=== PATIENT | male | born 1975 | race Hispanic/Latino ===

== ENCOUNTER 2017-02-08 12:42 | Observation (INO) | payer BC ==
[2017-02-08 13:24] VITALS: BMI 46.6
--- NOTE | 2017-02-08 13:27 | ED PDOC ---
Arrival/HPI - General Time Seen by Provider: 02/08/17 12:45 Historian: Patient - History of Present Illness Narrative History of Present Illness (Text): 02/08/17 13:26 A 41 year old male, whose past medical history includes non-insulin dependent diabetes, gastritis, chronic left shoulder pain and depression, anxiety on Zoloft and Xanax, presents to the emergency department complaining of generalized weakness since this morning. Patient reports he woke up feeling weak throughout his whole body and while driving to work he experienced a flushing feeling of severe weakness and dizziness. He states his symptoms have improved since arriving to emergency room. Patient denies any fever, nausea, vomiting, diarrhea, abdominal pain, chest pain, shortness of breath or any other complaints. PMD: Dr. Enciso Time/Duration: Other (This morning) Symptom Course: Improving Quality: Other Context: Other Past Medical History - Provider Review Nursing Documentation Reviewed: Yes - Tetanus Immunization Tetanus Immunization: Unknown - Endocrine/Metabolic Hx Diabetes Mellitus Type 2: Yes - Hematological/Oncological Hx Blood Transfusions: No - Musculoskeletal/Rheumatological Hx Falls: No - Gastrointestinal Hx Diverticulitis: Yes - Psychiatric Hx Emotional Abuse: No Hx Physical Abuse: No Hx Substance Use: Yes (occ marijuna) - Past Surgical History Past Surgical History: No Previous - Anesthesia Hx Anesthesia Reactions: No (NA) Hx Malignant Hyperthermia: No - Suicidal Assessment Feels Threatened In Home Enviroment: No Family/Social History - Physician Review Nursing Documentation Reviewed: Yes Family/Social History: No Known Family HX Smoking Status: Former Smoker Hx Alcohol Use: Yes (social) Hx Substance Use: Yes (occ marijuna) Hx Substance Use Treatment: No Allergies/Home Meds Allergies/Adverse Reactions: Allergies No Known Allergies Allergy (Verified 02/08/17 13:23) Home Medications: Home Meds Medication Instructions Recorded Confirmed Sertraline [Zoloft] 50 mg PO PRN PRN 08/03/14 02/08/17 ALPRAZolam [Xanax] 0.25 mg PO HS 02/08/17 02/08/17 Naproxen [Naprosyn] 500 mg PO PRN PRN 02/08/17 02/08/17 Review of Systems - Physician Review All systems were reviewed & negative as marked: Yes - Review of Systems Constitutional: Other (Generalized weakness). absent: Fevers Respiratory: absent: SOB Cardiovascular: absent: Chest Pain Gastrointestinal: absent: Abdominal Pain, Diarrhea, Nausea, Vomiting Neurological: Dizziness Physical Exam Vital Signs Reviewed: Yes Vital Signs Pulse Resp BP Pulse Ox 02/08/17 18:53 64 16 142/70 99 02/08/17 13:06 86 18 136/72 99 Blood Pressure: Normal Pulse: Regular Respiratory Rate: Normal Appearance: Positive for: Well-Appearing, Non-Toxic, Comfortable Pain Distress: None Mental Status: Positive for: Alert and Oriented X 3 Finger Stick Blood Glucose: 316 - Systems Exam Head: Present: Atraumatic, Normocephalic Pupils: Present: PERRL Extroacular Muscles: Present: EOMI Conjunctiva: Present: Normal Mouth: Present: Moist Mucous Membranes Neck: Present: Normal Range of Motion Respiratory/Chest: Present: Clear to Auscultation, Good Air Exchange. No: Respiratory Distress, Accessory Muscle Use Cardiovascular: Present: Regular Rate and Rhythm, Normal S1, S2. No: Murmurs Abdomen: Present: Normal Bowel Sounds. No: Tenderness, Distention, Peritoneal Signs Back: Present: Normal Inspection Upper Extremity: Present: Normal ROM, NORMAL PULSES, Tenderness (Left shoulder tenderness due to chronic pain), Neurovascularly Intact. No: Cyanosis, Edema, Swelling, Erythema, Temperature Abnormalties, Deformity Lower Extremity: Present: Normal Inspection. No: Edema Neurological: Present: GCS=15, CN II-XII Intact, Speech Normal Skin: Present: Warm, Dry, Normal Color. No: Rashes Psychiatric: Present: Alert, Oriented x 3, Normal Insight, Normal Concentration Medical Decision Making ED Course and Treatment: 02/08/17 13:26 Impression: A 41 year old male with generalized weakness and dizziness Plan: -- Head CT -- Chest xray -- EKG -- Labs -- Blood and Urine culture -- Urinalysis -- Reassess and disposition Progress Notes: Report Date : 02/08/2017 14:51:39 Procedure: Chest xray Dictator : Radha Lees V. IMPRESSION: No active disease. 02/08/17 16:05 On re-evaluation, patient reports he forgot to mention he had a metallic taste in his mouth prior to arrival. 02/08/17 16:27 Plan is to admit patient to telemetry obs. Will page medicine frontload driver, Dr. Reyes. Report Date : 02/08/2017 16:12:31 PROCEDURE: CT HEAD WITHOUT CONTRAST. Dictator : Radha Lees V. IMPRESSION: Normal CT of the Head. 02/08/17 16:[address] Reyes, who is unable to accept patient admission. Hospitalist paged. 02/08/17 17:00 Case discussed with hospitalist, who states to admit patient under Dr. Landry. (covers dr enciso pt) Dr. Landry paged. Awaiting call back. 02/08/17 17:[address] Landry, who accepts patient under his service. Requests Dr. Jewel Nunez for consult. pt aware of admission. 02/08/17 20:00 - Lab Interpretations Lab Results: 02/08/17 14:00 02/08/17 14:00 Lab Results 02/08/17 14:00: WBC 8.6 D, RBC 5.32, Hgb 16.0, Hct 44.8, MCV 84.2, MCH 30.1, MCHC 35.7, RDW 13.0, Plt Count 208, MPV 12.1 H, Gran % 72.4 H, Lymph % (Auto) 19.2 L, [place] % (Auto) 7.1 H, Eos % (Auto) 0.9 L, Baso % (Auto) 0.4, Gran # 6.20 , Lymph # 1.6, [place] # 0.6, Eos # 0.1, Baso # 0.03, Sodium 136, Potassium 4.2, Chloride 100, Carbon Dioxide 29, Anion Gap 11, BUN 14, Creatinine 0.7, Est GFR ( Amer) > 60, Est GFR (Non-Af Amer) > 60, Random Glucose 241 H, Calcium 9.2, Total Bilirubin 0.5, AST 21, ALT 25, Alkaline Phosphatase 114, Troponin I < 0.01, Total Protein 7.5, Albumin 3.9, Globulin 3.6, Albumin/Globulin Ratio 1.1 - RAD Interpretation Radiology Orders: 02/08/17 14:08 CHEST PORTABLE [RAD] Stat 02/08/17 14:09 HEAD W/O CONTRAST [CT] Stat - Medication Orders Current Medication Orders: Alprazolam (Xanax) 0.25 mg PO HS LEIGHANN PRN Reason: Protocol Stop: 02/15/17 22:01 Last Admin: 02/08/17 23:55 Dose: Not Given Non-Admin Reason: Patient Refused Insulin Human Regular (Humulin R Med) 0 units SC ACHS LEIGHANN PRN Reason: Protocol Oxycodone/Acetaminophen (Percocet 5/325 Mg Tab) 1 tab PO Q6H PRN PRN Reason: Pain, moderate (4-7) Stop: 02/12/17 08:53 Discontinued Medications Bupivacaine HCl (Marcaine 0.5%) 5 ml IJ ONCE ONE Stop: 02/09/17 08:56 Methylprednisolone Acetate (Depo-Medrol) 80 mg IM ONCE ONE Stop: 02/09/17 08:56 Oxycodone/Acetaminophen (Percocet 10/325 Mg Tab) 1 tab PO STAT STA Stop: 02/08/17 23:52 Last Admin: 02/09/17 00:08 Dose: 1 TAB MAR Pain Assessment Document 02/09/17 00:08 KTR (Rec: 02/09/17 00:08 KTR [id number]) Pain Reassessment Is this a pain reassessment? No Location Left, Right or Bilateral Left Pain Location Body Site Shoulder Description Description Intermittent Pain Behavior Moaning NIHSS Scale (Mabel) Time Performed: 13:00 - How Severe is the Stoke Baseline Level of Consciousness: 0=Alert LOC to Questions: 0=Both comments correct LOC to commands: 0=Obeys both correctly Best Gaze: 0=Normal Visual: 0=No visual loss Facial: 0=Normal Motor Arm - Left: 0=No drift Motor Arm - Right: 0=No drift Motor Leg - Left: 0=No drift Motor Leg - Right: 0=No drift Limb Ataxia: 0=Absent Sensory: 0=Normal Best Language: 0=No aphasia Dysarthia: 0=Normal articulation Extinction & Inattention (Neglect): 0=Normal, no object Score: 0 Risk Level: No Stroke Risk rTPA Inclusion/Exclusion - Refusal of Treatment Patient Refused Treatment: No - Inclusion Criteria for Altepase Patient is 18 years or Older: Yes The Clinical Diagnosis of Ischemic Stroke That is Causing a Potentially Disabling Neurological Deficit: No Time of Onset is Well Established to be Less Than 270 Minute Before Treatment Would Begin: Yes Risk/Benefit Discussed With Patient/Family Member Present: Yes - Exclusion Criteria for Altepase Uncontrolled Hypertension at Time of Treatment (Systolic BP above 185 or Diastolic BP above 110 mmHg): No Active Internal Bleeding: No Known Bleeding Diathesis Including but Not Limited to: Platelets Below 100,000/ mm,PTT Above 40 sec After Heparin Use, Current Use of Oral Anitcoagulant With INR Greater Than 1.7 or PT Greater Than 15 secs: No Evidence of an Intracranial Hemorrhage: No Evidence of Major Acute Infarct With Signs Greater Than 1/3 MCA Territory: No Suspicion of Subarachnoid Hemorrhage on Pretreatment Evaluation Even if CT Head Negative For Hemorrhage: No - Warning to TPA With Conditions Following Conditions Weighed Against Anticipated Benefit: No - Scribe Statement The provider has reviewed the documentation as recorded by the Renetta Carrion Provider Scribe Attestation: All medical record entries made by the Renetta were at my direction and personally dictated by me. I have reviewed the chart and agree that the record accurately reflects my personal performance of the history, physical exam, medical decision making, and the department course for this patient. I have also personally directed, reviewed, and agree with the discharge instructions and disposition. Disposition/Present on Arrival - Present on Arrival Any Indicators Present on Arrival: No History of DVT/PE: No History of Uncontrolled Diabetes: No Urinary Catheter: No History Surgical Site Infection Following: None - Disposition Have Diagnosis and Disposition been Completed?: Yes Diagnosis: Pre-syncope, Dizziness Disposition: HOSPITALIZED Disposition Time: 16:05 Patient Plan: Admission Condition: STABLE
[2017-02-08 14:21] LABS: ADD MANUAL DIFF? NO
[2017-02-08 14:22] LABS: BASO # 0.03 K/mm3 (0.0-2.0); BASO % 0.4 % (0.0-3.0); EOS # 0.1 (0.0-0.7); EOS % 0.9 % (1.5-5.0); GRAN % 72.4 % (50.0-68.0); HEMATOCRIT 44.8 % (42.0-52.0); LYMPH # 1.6 (1.2-3.4); LYMPH % 19.2 % (22.0-35.0); MEAN CELL VOLUME 84.2 fL (80.0-105.0); MEAN CORPUSCULAR HEMOGLOBIN 30.1 pg (25.0-35.0); MEAN CORPUSCULAR HGB CONC 35.7 g/dl (31.0-37.0); MEAN PLATELET VOLUME 12.1 fl (7.0-11.0); MONO # 0.6 (0.1-0.6); MONO % 7.1 % (1.0-6.0); PLATELET COUNT 208 10^3/uL (120.0-450.0); WHITE BLOOD COUNT 8.6 10^3/ul (4.5-11.0)
[2017-02-08 14:33] LABS: ALB/GLOB RATIO 1.1 (1.1-1.8); ALKALINE PHOSPHATASE 114 U/L (38-133); ALT/SGPT 25 U/L (7-56); AST/SGOT 21 U/L (15-59); BILIRUBIN,TOTAL 0.5 mg/dL (0.2-1.3); BLOOD UREA NITROGEN 14 mg/dL (7-21); CALCIUM 9.2 mg/dL (8.4-10.5); CARBON DIOXIDE 29 mmol/L (21-33); CHLORIDE 100 mmol/L (98-107); GFR AFRICAN-AMERICAN > 60; GLUCOSE,RANDOM 241 mg/dL (70-110); POTASSIUM 4.2 mmol/L (3.6-5.0); SODIUM 136 mmol/L (132-148); TOTAL PROTEIN 7.5 g/dL (5.8-8.3)
[2017-02-08 14:44] LABS: TROPONIN I < 0.01 ng/mL
--- NOTE | 2017-02-08 14:53 | RAD ---
HISTORY: dizziness COMPARISON: 08/01/2016 FINDINGS: LUNGS: No active pulmonary disease. PLEURA: No significant pleural effusion identified, no pneumothorax apparent. CARDIOVASCULAR: Normal. OSSEOUS STRUCTURES: Prominent 1st coaster cartilaginous junctional calcifications are present and similar-appearing VISUALIZED UPPER ABDOMEN: Normal. OTHER FINDINGS: None. IMPRESSION: No active disease.
--- NOTE | 2017-02-08 16:13 | CT ---
PROCEDURE: CT HEAD WITHOUT CONTRAST. HISTORY: dizziness COMPARISON: None available. TECHNIQUE: Axial computed tomography images were obtained through the head/brain without intravenous contrast. Radiation dose: Total exam DLP = 689 mGy-cm. FINDINGS: HEMORRHAGE: No intracranial hemorrhage. BRAIN: No mass effect or edema. No atrophy or chronic microvascular ischemic changes. VENTRICLES: Unremarkable. No hydrocephalus. CALVARIUM: Unremarkable. PARANASAL SINUSES: Unremarkable as visualized. No significant inflammatory changes. MASTOID AIR CELLS: Unremarkable as visualized. No inflammatory changes. OTHER FINDINGS: None. IMPRESSION: Normal CT of the Head.
[2017-02-08] MEDS ORDERED: Oxycodone/Acetaminophen 10/325 mg Tab PO STA (23:51)
--- NOTE | 2017-02-08 23:54 | CP.PCM.PN ---
Subjective - Date & Time of Evaluation Date of Evaluation: 02/08/17 Time of Evaluation: 23:52 - Subjective Subjective: Patient was seen at bedside for left shoulder pain. States that he has this pain for past 2 months. States he takes naprosyn at home, sometimes his uncle's percocet , which helps him. Denies injury to left shoulder. Denies chest pain,sob, nausea,sweating , palpitation. Pertinent medical record was reviewed. This 41 year old white male was admitted with generalized weakness, dizziness. Has PMH of NIDDM , arthritis, diverticulitis, marijuana use, chronic left shoulder pain, former smoker, Objective - Vital Signs/Intake and Output Vital Signs (last 24 hours): Temp Pulse Resp BP Pulse Ox 64 16 142/70 99 02/08/17 18:53 02/08/17 18:53 02/08/17 18:53 02/08/17 18:53 Intake and Output: 02/08/17 02/09/17 18:59 06:59 Intake Total 300 Output Total 500 Balance -200 - Medications Medications: Current Medications Alprazolam (Xanax) 0.25 mg PO HS LEIGHANN PRN Reason: Protocol Stop: 02/15/17 22:01 Oxycodone/Acetaminophen (Percocet 10/325 Mg Tab) 1 tab PO STAT STA Stop: 02/08/17 23:52 - Constitutional Appears: Well, No Acute Distress - Head Exam Head Exam: ATRAUMATIC, NORMAL INSPECTION, NORMOCEPHALIC Additional comments: Obese. - Eye Exam Eye Exam: Normal appearance - ENT Exam ENT Exam: Normal External Ear Exam - Neck Exam Neck Exam: Normal Inspection - Respiratory Exam Respiratory Exam: NORMAL BREATHING PATTERN - Cardiovascular Exam Cardiovascular Exam: absent: JVD - GI/Abdominal Exam GI & Abdominal Exam: absent: Distended - Rectal Exam Rectal Exam: Deferred - Extremities Exam Extremities Exam: Normal Inspection Additional comments: Left shoulder movement is limited secondary to pain. No loss of sensation. No erythema, No hematoma. - Back Exam Back Exam: NORMAL INSPECTION - Neurological Exam Neurological Exam: Alert, Oriented x3 - Psychiatric Exam Psychiatric exam: Normal Affect, Normal Mood - Skin Skin Exam: Normal Color Assessment and Plan - Assessment and Plan (Free Text) Assessment: A/P:Chronic left shoulder pain. Weakness Dizziness. Arthritis. Obesity. Percocet 325/10 I PO now.
[2017-02-09 01:07] VITALS: RESP 20
[2017-02-09 05:18] LABS: URINE BILIRUBIN NEGATIVE (NEGATIVE); URINE BLOOD NEGATIVE (NEGATIVE); URINE GLUCOSE (UA) >=1000 mg/dL (NEGATIVE); URINE KETONE NEGATIVE (NEGATIVE); URINE LEUKOCYTE ESTERASE NEGATIVE Leu/uL (NEGATIVE); URINE PROTEIN NEGATIVE mg/dL (<30 mg/dL); URINE UROBILINOGEN 0.2 E.U./dL (<1 E.U./dL)
[2017-02-09 05:24] LABS: URINE APPEARANCE CLEAR (CLEAR); URINE COLOR YELLOW (YELLOW)
[2017-02-09] MEDS ORDERED: Oxycodone/Acetaminophen 5/325 mg Tab PO PRN (08:52)
[2017-02-09] MEDS ORDERED: MethylPREDNISolone Depo 40 mg/ml Inj IM ONE (08:55)
[2017-02-09] MEDS ORDERED: Bupivacaine 0.5% Inj(30mL) IJ ONE (08:55)
--- NOTE | 2017-02-09 10:58 | CON ---
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 PAST MEDICAL HISTORY: Free of seizure disorder. No previous cardiac history is noted. The patient is sedentary and denies history of diabetes mellitus nor hypertension. No previous cardi ac history is noted. The patient does complain of intermittent focal left sternal chest discomfort i ntermittently in the past. SOCIAL HISTORY: He denies smoking. FAMILY HISTORY: Active for multiple near relatives with a history of cardiac and coronary issues. REVIEW OF SYSTEMS: A 14-point review of systems was reviewed in detail. No active cardiac symptomat ology is noted. PHYSICAL EXAMINATION: GENERAL: The patient is an obese male in no acute distress. VITAL SIGNS: Blood pressure is 122/68 with no orthostatic changes. Heart rate is in the 60s. NECK: Negative JVD. LUNGS: Without rales. HEART: Reveals S1, S2. EXTREMITIES: Without edema. LABORATORIES: The glucose is 241. Troponins are negative x 2. EKG is unremarkable. IMPRESSION: 1. Status post syncope, likely due to a seizure disorder. 2. No cardiac source of syncope is noted. 3. Obesity. 4. Diabetes mellitus. 5. Strong family history for coronary artery disease. 6. No evidence for acute coronary syndrome. PLAN: Given these findings, the patient is for EEG today. In addition, will order an echocardiogram to evaluate his LV function. Once his syncope as well as s eizure disorder is ruled out, will arrange for an outpatient stress test to rule out significant kathy nary disease given the patient's cardiac risk. Joseph Almonte MD cc: [id number] TT: 02/09/2017 10:57:56 Confirmation # [id number] Dictation # [id number] christina
--- NOTE | 2017-02-09 11:00 | CON ---
DATE: 02/09/2017 The patient is a 41-year-old male with left shoulder pain. 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 A large-framed patient and u sed to lift weights when he was younger. He has tender subacromial joint posteriorly and anteriorly and extreme stiffness, mostly in the morning and when he is not moving it. He has increased pain whe n he does move it, but after moving it a little more, it feels better throughout the day. So he does not have an x-ray, so we are going to order an x-ray looking for subacromial impingement and calcifi cation and AC joint arthritis because he is tender anteriorly over the AC joint and posterior over th e posterior capsule and subacromial region laterally. He has limited range of motion. He can touch his head if he does it slowly. I encouraged him not to use a sling and to do gentle range of motion exercises. So, we will get an x-ray, start therapy, see how he responds to a cortisone shot and then if need be, we could always get an MRI of the left shoulder to look for rotator cuff problems. FINAL DIAGNOSIS: Left shoulder impingement with bursitis, to reevaluate after the x-ray is performed . Kevyn Alanis DO cc: [id number] TT: 02/09/2017 11:00:04 Confirmation # [id number] Dictation # [id number] nelly
--- NOTE | 2017-02-09 11:23 | HP ---
CHIEF COMPLAINT AND HISTORY OF PRESENT ILLNESS: This is a 41-year-old male who is coming in to the [facility] with diabetes type 2, gastritis, and left shoulder pain with complaints of dizziness. The pa cecil says that he was sitting in his truck and started having weakness in the arms. He was not able to move. He was dizzy. He had no complaints of any shortness of breath, no nausea, no vomiting, no abdominal pain or back pain, no dysuria or frequency, no nocturia. REVIEW OF SYSTEMS: All other review of symptoms are within normal limits except as mentioned. ALLERGIES: No known drug allergies. HOME MEDICATIONS: Zoloft, Xanax, Naprosyn. PAST MEDICAL HISTORY: Diabetes type 2, diverticulitis, arthritis of the knees. HOME MEDICATIONS: Victoza and metformin. FAMILY HISTORY: Noncontributory. SOCIAL HISTORY: He never smoked. He drinks socially. 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 He has used mar ijuana in the past. PHYSICAL EXAMINATION: VITAL SIGNS: Temperature is 98.4, pulse of 65. Blood pressure is 130/85, respirations 20, O2 satura tion 98%. Height is 5 feet 10 inches. Weight is 325 pounds. BMI is 46. GENERAL: The patient is lying in bed, flat, and in no apparent distress. HEAD AND NECK EXAM: Atraumatic, normocephalic. Conjunctivae are pink. Throat clear and mouth with moist mucosa. Oropharynx benign. EYES: Extraocular movements are intact. PERRLA. NECK: Supple. No JVD, thyromegaly, or adenopathy. No bruits. HEART: S1 and S2 regular rate and rhythm. No murmurs, rubs, or gallops. LUNGS: Clear to auscultation bilaterally. No wheezing rales or rhonchi appreciated. No retraction s on exam. ABDOMEN: Soft, nontender, nondistended. Bowel sounds are positive in all quadrants. No rebound. No hepatosplenomegaly. EXTREMITIES: No cyanosis, clubbing, or edema. In the left shoulder, there is decreased range of m otion because of pain. NEURO: No facial asymmetry, tongue is midline, no uvula deviation. Power is 5/5 in upper extremity and 5/5 in lower extremity. Sensation is normal in upper extremity and lower extremity. PSYCH: Awake, alert, oriented x3. No anxiety or depression symptoms. Good insight. Normal affec t. : No CVA tenderness VASCULAR: 2+ pulses in carotid and pedal pulses. SKIN: No erythema or abnormal nodules noted. SPINE: Normal curvature. LYMPHADENOPATHY: No anterior cervical or posterior cervical adenopathy. No inguinal adenopathy. LABORATORY DATA: White count of 8.6. Hemoglobin is 16. Platelet count is 208. Chemistry shows a s odium of 136. Potassium is 4.2. His urine shows that proteins are negative. Glucose is greater than 1000. Blood is negative. Nitri kallie are negative. Chest x-ray is normal. CT of the head is negative. ASSESSMENT: 1. Dizziness. 2. Diabetes type 2. 3. Obese with a body mass index of 46. 4. Left shoulder pain. The patient is currently on Xanax. I will get cardiology evaluation. I will also get neurology eval uation. I have asked Dr. Alanis to evaluate the patient's left shoulder. Will await further i nput from the corporate travel consultant. The patient's initial troponin is negative. Will order an echo. Jake Landry MD cc: [id number] TT: 02/09/2017 11:23:04 jn
[2017-02-09] MEDS: Insulin Reg-MEDIUM-Coverage SC SCH ×3 (12:45→22:20)
--- NOTE | 2017-02-09 15:22 | RAD ---
PROCEDURE: Bilateral shoulders HISTORY: pain stiffness. No antecedent history of trauma provided. COMPARISON: None TECHNIQUE: Standard protocol for this study/examination. FINDINGS: No significant osseous, articular or soft tissue abnormalities. Preserved glenohumeral relationship. Negative study for clavicular, scapular, humeral fracture. No abnormalities visualized thorax including limited assessment of ribs and pulmonary parenchyma Degenerative changes- none. IMPRESSION: No significant or acute findings to account for/ related to the clinical presentation.
--- NOTE | 2017-02-09 15:32 | CARD ---
APPROVED REPORT EXAM: Two-dimensional and M-mode echocardiogram with Doppler and color Doppler. INDICATION Dizziness and Vertigo 2D DIMENSIONS Left Atrium (2D)4.0 (1.6-4.0cm)IVSd0.8 (0.7-1.1cm) LVDd4.9 (3.9-5.9cm)PWd1.2 (0.7-1.1cm) LVDs3.6 (2.5-4.0cm)FS (%) 27.5 % LVEF (%)53.1 (>50%) M-Mode DIMENSIONS Aortic Root3.40 (2.2-3.7cm)Aortic Cusp Exc.2.10 (1.5-2.0cm) Aortic Valve AoV Peak Avnasjse030.0cm/Mateo Peak GR.6mmHg Mitral Valve MV E Ehrofqpo09.0cm/sMV A Xcengehe42.3cm/sE/A ratio1.3 TDI Lateral E' Peak V8.97cm/sMedial E' Peak V8.87cm/sE/Lateral E'8.2 E/Medial E'8.3 Pulmonary Valve PV Peak Trvemeug36.3cm/sPV Peak Grad.1mmHg Tricuspid Valve TR Peak Xascryff585lo/sRAP [id number] Peak Gr.12mmHg [id number] LEFT VENTRICLE The left ventricle is normal size. There is normal left ventricular wall thickness. The left ventricular function is normal. The left ventricular ejection fraction is within the normal range. The left ventricular diastolic function is normal. RIGHT VENTRICLE The right ventricle is normal size. There is normal right ventricular wall thickness. The right ventricular systolic function is normal. ATRIA The left atrium size is normal. The right atrium size is normal. AORTIC VALVE The aortic valve is normal in structure. No aortic regurgitation is present. MITRAL VALVE The mitral valve is normal in structure. There is no mitral valve regurgitation noted. TRICUSPID VALVE There is no pulmonary hypertension. GREAT VESSELS The aortic root is normal in size. The IVC is normal in size and collapses >50% with inspiration. PERICARDIAL EFFUSION There is no pericardial effusion. <Conclusion> The left ventricle is normal size. There is normal left ventricular wall thickness. The left ventricular function is normal. The left ventricular ejection fraction is within the normal range. The left ventricular diastolic function is normal.
--- NOTE | 2017-02-09 15:46 | CARD ---
APPROVED REPORT EKG Measurement Heart [id number] <Conclusion> Normal sinus rhythm Normal ECG
--- NOTE | 2017-02-09 17:25 | EEG ---
DATE: 02/09/2017 CONDITION OF RECORDING: Awake, drowsy and hyperventilation photic stimulation was not done. History of seizure. PAST MEDICAL HISTORY: Diabetes, gastritis, anxiety. DESCRIPTION: Background activity of this tracing was composed of 8-9 cycles per second alpha-like ac tivity, small amount of beta activity of 16-20 cycles per second was noted in the tracing. Drowsines s was composed of mixed beta and theta activity. Photic stimulation and hyperventilation was not don e. IMPRESSION: Normal awake, drowsy electroencephalography. Awais Mayra HAYES cc: [id number] TT: 02/09/2017 17:25:13 Confirmation # [id number] Dictation # [id number] jn
--- NOTE | 2017-02-09 20:44 | CON ---
DATE: 02/09/2017 HISTORY OF PRESENT ILLNESS: This is a 41-year-old male with a significant past medical history of di abetes, arthritis, diverticulitis, and left shoulder pain. He came in with dizziness and having weak ness in the arm and called his who brought him to the hospital. PAST MEDICAL HISTORY: As above. ALLERGIES: No known drug allergies. REVIEW OF SYSTEMS: A 10-point review of system was negative. SOCIAL HISTORY: Does not smoke. Drinks socially. 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 PHYSICAL EXAMINATION: HEENT: Normocephalic, atraumatic. NECK: Supple. NEUROLOGIC: Cranial nerves II through XII were tested. Pupils reactive. EOM intact. Visual charles full. No facial asymmetry. Tongue midline. Motor examination: Moves all the extremities spontane ously, though left shoulder limited movement. Deep tendon reflexes 1+. Both plantars are downgoing. Sensory appears intact. Cerebellar, gait normal. IMPRESSION: Dizziness, vertigo, and multiple medical problems like diabetes, obesity, and left shoul baltazar pain. CAT scan of the head was done, which was negative. We will follow up workup in progress. Awais Nunez MD cc: [id number] TT: 02/09/2017 20:44:22 Confirmation # [id number] Dictation # [id number]
[2017-02-10 05:55] VITALS: O2SAT 97
[2017-02-10] MEDS: Insulin Reg-MEDIUM-Coverage SC SCH ×4 (10:56→17:06)
--- NOTE | 2017-02-10 11:30 | PN ---
DATE: 02/10/2017 The patient's dizziness is resolved. On physical exam, the blood pressure is 111/73, the heart rate is in the 60s, normal sinus rhythm. NECK: Negative JVD. LUNGS: Without rales. HEART: With S1, S2. EXTREMITIES: Without edema. LABORATORIES: Glucose is 255, the hemoglobin was not measured today. Echocardiogram reveals good LV function with no LV outflow obstruction. IMPRESSION: 1. Dizziness. 2. No evidence for acute coronary syndrome. 3. No arrhythmias noted. 4. Diabetes mellitus. 5. Obesity. Given these findings, I have discussed with the patient about the need to rule out coronary artery di sease. Will arrange for an outpatient stress test. The patient is agreeable, and will be back next Monday for a stress test. Joseph Almonte MD cc: [id number] TT: 02/10/2017 11:30:15 Confirmation # [id number] Dictation # [id number] jn
--- NOTE | 2017-02-10 14:10 | DS ---
This is a 41-year-old male who had come into the hospital complaining of dizziness. He was seen by c ardiology and neurology. He has an echo that was done. He initially was complaining of dizziness, v gamal vague about the symptoms. He had an echo done that shows normal LV size. The patient also had o n EEG that was done to rule out seizures. He had a normal EEG. The patient had an x-ray of his left shoulder that showed no significant acute findings that were seen. He was also seen by Dr. Marian jacobs for his left shoulder. He was given a cortisone shot. He will most likely need outpatient stre ss test by Dr. Almonte. I will discharge the patient home to follow up with his primary care doctor. PHYSICAL EXAMINATION: VITAL SIGNS: Temperature is 97, pulse of 59, blood pressure 111/73, respirations 20, O2 saturation 9 7%. GENERAL: The patient comfortable, in no acute distress. HEENT: Anicteric sclerae. Moist mucosa. NECK: No JVD or adenopathy. CARDIAC: S1/S2. No murmurs. No rubs. Regular. RESPIRATORY: Clear to auscultation bilaterally. No wheezes, rales, or rhonchi. Good air entry. ABDOMEN: Bowel sounds are positive, soft, nontender, and nondistended. EXTREMITIES: No edema. Has 1+ pulses. ASSESSMENT: 1. Dizziness, improved. 2. Left shoulder pain. 3. Diabetes type 2. 4. Obese with a body mass index of 46. PLAN: The patient is on Percocet for pain. He received an injection by Dr. Alanis. He is on Xanax. He is on insulin sliding scale. His sugars are elevated. He will be discharged home today t o follow up with his primary care doctor, Dr. Reyna. CONDITION: Stable. ACTIVITIES: Increase as tolerated. FOLLOWUP: Follow with Dr. Almonte for stress test. Jake Landry MD cc: [id number] TT: 02/10/2017 14:09:14 christina
[2017-02-10 14:50] VITALS: BP 142/90; PULSE 78; TEMP 97.3
--- NOTE | 2017-02-10 16:01 | PROCN ---
DATE: 02/10/2017 Room 268, bed 2. The patient was seen yesterday for pain in the left shoulder. 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 Clinically, he has an intact ro tator cuff. His pain has been for 8 months from bursitis of the left shoulder with underlying subacr omial impingement, which may have to be investigated later with an MRI of the left shoulder. The rig ht shoulder has a similar appearance with mild osteoarthritis of the AC joint and site of subacromial impingement. He has a big frame, so what I did to help him out with the pain, we gave him an inject ion of Depo-Medrol and Marcaine through the posterior incision into the subacromial space and hopeful ly this will help the symptoms. But if it recurs and gets too prolonged will have to do an MRI to re ally see if the impingement if from the subacromial hypertrophy, tissue with spurs and aggravated by AC joint. I will follow him as an outpatient later. He can go home today. Kevyn Alanis DO cc: [id number] TT: 02/10/2017 16:00:49 Confirmation # [id number] Dictation # [id number] jn
== END 2017-02-10 17:45 | disposition home or self-care (01) ==
LOC: ED 12:42 → 2RNO 16:27 → INTOOBSV 16:27
PROVIDERS: ADMIT Internal Medicine Nephrology; ATTEND Internal Medicine Nephrology
DX: R55 Syncope and collapse (principal); R42 Dizziness and giddiness; M19.012 Primary osteoarthritis, left shoulder; M75.52 Bursitis of left shoulder; M75.42 Impingement syndrome of left shoulder; K29.70 Gastritis, unspecified, without bleeding; G89.29 Other chronic pain; E11.9 Type 2 diabetes mellitus without complications; F32.9 Major depressive disorder, single episode, unspecified; F41.9 Anxiety disorder, unspecified; Z79.84 Long term (current) use of oral hypoglycemic drugs; R53.1 Weakness; Z68.42 Body mass index [BMI] 45.0-49.9, adult; E66.9 Obesity, unspecified; F12.90 Cannabis use, unspecified, uncomplicated; Z87.891 Personal history of nicotine dependence; Z82.49 Family history of ischemic heart disease and other diseases of the circulatory system
CPT/HCPCS: 20610; 70450; 71010; 73030; 80053; 81003; 82948; 84484; 85025; 87086; 93005; 93306; 95812; 99285; G0378